=== PATIENT | female | born 1955 | race Caucasian/White ===

== ENCOUNTER 2022-04-23 10:25 | Inpatient (IN) | payer OTHER ==
[2022-04-23] MEDS ORDERED: SODIUM CHLORIDE 0.9% 500 ML 500 ML IV STA (10:56)
[2022-04-23] MEDS ORDERED: DILTIAZEM DRIP BOLUS FROM BAG 1 MG SOLN IV ONE (11:13)
[2022-04-23] MEDS ORDERED: HEPARIN SODIUM 1,000 UN/ML (10ML VL) IV ONE (11:13)
[2022-04-23] MEDS ORDERED: HEPARIN SOD,PORK IN 0.45% NACL 25,000 UNIT in 0.45% NACL 1 250ML.BAG IV SCH (11:15)
[2022-04-23 11:30] LABS: Basophils % (A) 1 %; Eosinophils # (A) 0.1 k/uL (0-0.7); Eosinophils % (A) 1 %; HCT 41.6 % (34.0-46.0); HGB 14.4 gm/dL (11.4-16.0); Lymphocytes # (A) 1.3 k/uL (1.0-4.8); Lymphocytes % (A) 29 %; MCH 34.6 pg (25.0-35.0); MCHC 34.7 g/dL (31.0-37.0); MCV 99.7 fL (80.0-100.0); Mean Platelet Volume 7.7; Monocytes # (A) 0.5 k/uL (0-1.0); Monocytes % (A) 11 %; Neutrophils # (A) 2.4 k/uL (1.3-7.7); Neutrophils % (A) 54 %; Platelet Count 229 k/uL (150-450); RBC 4.17 m/uL (3.80-5.40); RDW 13.7 % (11.5-15.5); WBC 4.4 k/uL (3.8-10.6)
[2022-04-23 11:31] LABS: ALT 25 U/L (4-34); AST 30 U/L (14-36); African American GFR (CKD) >90 (>60 ml/min/1.73 sqM); Albumin 4.7 g/dL (3.5-5.0); Alkaline Phosphatase 73 U/L (38-126); Anion Gap 9 mmol/L; Blood Urea Nitrogen 17 mg/dL (7-17); Calcium 9.3 mg/dL (8.4-10.2); Carbon Dioxide 27 mmol/L (22-30); Chloride 106 mmol/L (98-107); Glucose 108 mg/dL (74-99); Magnesium 1.6 mg/dL (1.6-2.3); Non-African American GFR(CKD) >90 (>60 ml/min/1.73 sqM); Potassium 4.3 mmol/L (3.5-5.1); Sodium 142 mmol/L (137-145); Total Bilirubin 1.4 mg/dL (0.2-1.3); Total Protein 7.5 g/dL (6.3-8.2)
[2022-04-23] MEDS: DILTIAZEM 125 MG in SODIUM CHLORIDE 0.9% 100 ML IV SCH ×2 (11:33→21:52)
[2022-04-23 11:34] LABS: INR 1.1 (<1.2); Partial Thromboplastin Time 25.7 sec (22.0-30.0); Prothrombin Time 11.3 sec (9.0-12.0)
--- NOTE | 2022-04-23 12:07 | XR ---
EXAMINATION TYPE: XR chest 2V DATE OF EXAM: 04/23/2022 12:01 PM COMPARISON: None TECHNIQUE: XR chest 2V Frontal and lateral views of the chest. CLINICAL INDICATION:Female, 66 years old with history of dysrhythmia; FINDINGS: Lungs/Pleura: There is no evidence of pleural effusion, focal consolidation, or pneumothorax. Pulmonary vascularity: Unremarkable. Heart/mediastinum: Cardiomediastinal silhouette is unremarkable. Musculoskeletal: No acute osseous pathology. IMPRESSION: No acute cardiopulmonary disease/process.
--- NOTE | 2022-04-23 13:36 | ED ---
General Adult HPI - General Chief complaint: Arrhythmia/Palpitations Stated complaint: Tachycardia Time Seen by Provider: 04/23/22 11:04 Source: patient, family, RN notes reviewed, old records reviewed Mode of arrival: ambulatory - History of Present Illness Initial comments: This is a 66-year-old female who has a history of high blood pressure. Patient drove in from [place] approximately 9 hours and woke up this morning feeling her heart racing. Patient states she put her apple watch on and the watch told her that her heart was about 140 beats minute. Patient states she has no previous history of atrial fibrillation or atrial flutter per patient denies any chest pain. Patient denies any recent fever chills or cough. Patient denies any lightheadedness or dizziness. Patient denies any headache patient denies numbness weakness. Patient denies abdominal pain patient has nausea vomiting or diarrhea. - Related Data Home Medications Medication Instructions Recorded Confirmed Aspirin EC [Ecotrin Low Dose] 81 mg PO DAILY 04/23/22 04/23/22 Rosuvastatin [Crestor] 0 mg 04/23/22 Allergies Allergy/AdvReac Type Severity Reaction Status Date / Time No Known Allergies Allergy Verified 04/23/22 13:48 Review of Systems ROS Statement: Those systems with pertinent positive or pertinent negative responses have been documented in the HPI. ROS Other: All systems not noted in ROS Statement are negative. Past Medical History Past Medical History: Hyperlipidemia, Hypertension History of Any Multi-Drug Resistant Organisms: None Reported Past Surgical History: No Surgical Hx Reported, Orthopedic Surgery Additional Past Surgical History / Comment(s): Lung wedge resection...bleb burst 1990. ankle Past Psychological History: No Psychological Hx Reported Smoking Status: Never smoker Past Alcohol Use History: Daily Past Drug Use History: None Reported General Exam - General Exam Comments Initial Comments: GENERAL: Patient is well-developed and well-nourished. Patient is nontoxic and well- hydrated and is in mild distress. ENT: Neck is soft and supple. No significant lymphadenopathy is noted. Oropharynx is clear. Moist mucous membranes. Neck has full range of motion without eliciting any pain. EYES: The sclera were anicteric and conjunctiva were pink and moist. Extraocular movements were intact and pupils were equal round and reactive to light. Eyelids were unremarkable. PULMONARY: Unlabored respirations. Good breath sounds bilaterally. No audible rales rhonchi or wheezing was noted. CARDIOVASCULAR: Patient's heart rate is regular at about 140 beats minute ABDOMEN: Soft and nontender with normal bowel sounds. No palpable organomegaly was noted. There is no palpable pulsatile mass. SKIN: Skin is clear with no lesions or rashes and otherwise unremarkable. NEUROLOGIC: Patient is alert and oriented x3. Cranial nerves II through XII are grossly intact. Motor and sensory are also intact. Normal speech, volume and content. Symmetrical smile. MUSCULOSKELETAL: Normal extremities with adequate strength and full range of motion. No lower extremity swelling or edema. No calf tenderness. LYMPHATICS: No significant lymphadenopathy is noted PSYCHIATRIC: Normal psychiatric evaluation. Course Vital Signs 04/23/22 04/23/22 04/23/22 10:45 11:13 12:00 Temperature 98.3 F Pulse Rate 143 H Pulse Rate [ 141 H Lead Injection Mold Technician ] Respiratory 18 16 Rate Blood Pressure 149/97 134/101 O2 Sat by Pulse 99 99 Oximetry 04/23/22 04/23/22 13:00 13:35 Temperature Pulse Rate 142 H 142 H Pulse Rate [ Lead Injection Mold Technician ] Respiratory 18 20 Rate Blood Pressure 142/108 141/73 O2 Sat by Pulse 99 99 Oximetry Medical Decision Making - Medical Decision Making EKG was interpreted by myself EKG showed atrial flutter at a rate of 142 bpm QRS is 178 QT interval 328 QTC is 410 Patient was placed on a Cardizem drip and heparin drip. I spoke with Dr. Martin agreed to admit the patient admitted the patient wrote admitting orders I consult cardiology. - Lab Data Result diagrams: 04/23/22 11:02 04/23/22 11:02 Lab Results 04/23/22 04/23/22 04/23/22 Range/Units 11:02 11:02 11:02 WBC 4.4 (3.8-10.6) k/uL RBC 4.17 (3.80-5.40) m/uL Hgb 14.4 (11.4-16.0) gm/dL Hct 41.6 (34.0-46.0) % MCV 99.7 (80.0-100.0) fL MCH 34.6 (25.0-35.0) pg MCHC 34.7 (31.0-37.0) g/dL RDW 13.7 (11.5-15.5) % Plt Count 229 (150-450) k/uL MPV 7.7 Neutrophils % 54 % Lymphocytes % 29 % Monocytes % 11 % Eosinophils % 1 % Basophils % 1 % Neutrophils # 2.4 (1.3-7.7) k/uL Lymphocytes # 1.3 (1.0-4.8) k/uL Monocytes # 0.5 (0-1.0) k/uL Eosinophils # 0.1 (0-0.7) k/uL Basophils # 0.0 (0-0.2) k/uL PT 11.3 (9.0-12.0) sec INR 1.1 (<1.2) APTT 25.7 (22.0-30.0) sec D-Dimer 0.33 (<0.60) mg/L FEU Sodium (137-145) mmol/L Potassium (3.5-5.1) mmol/L Chloride (98-107) mmol/L Carbon Dioxide (22-30) mmol/L Anion Gap mmol/L BUN (7-17) mg/dL Creatinine (0.52-1.04) mg/dL Est GFR (CKD-EPI)AfAm (>60 ml/min/1.73 sqM) Est GFR (CKD-EPI)NonAf (>60 ml/min/1.73 sqM) Glucose (74-99) mg/dL Calcium (8.4-10.2) mg/dL Magnesium (1.6-2.3) mg/dL Total Bilirubin (0.2-1.3) mg/dL AST (14-36) U/L ALT (4-34) U/L Alkaline Phosphatase (38-126) U/L Troponin I (0.000-0.034) ng/mL Total Protein (6.3-8.2) g/dL Albumin (3.5-5.0) g/dL TSH (0.465-4.680) mIU/L Urine Opiates Screen Not Detected (NotDetected) Ur Oxycodone Screen Not Detected (NotDetected) Urine Methadone Screen Not Detected (NotDetected) Ur Propoxyphene Screen Not Detected (NotDetected) Ur Barbiturates Screen Not Detected (NotDetected) U Tricyclic Antidepress Not Detected (NotDetected) Ur Phencyclidine Scrn Not Detected (NotDetected) Ur Amphetamines Screen Not Detected (NotDetected) U Methamphetamines Scrn Not Detected (NotDetected) U Benzodiazepines Scrn Not Detected (NotDetected) Urine Cocaine Screen Not Detected (NotDetected) U Marijuana (THC) Screen Not Detected (NotDetected) 04/23/22 04/23/22 Range/Units 11:02 11:02 WBC (3.8-10.6) k/uL RBC (3.80-5.40) m/uL Hgb (11.4-16.0) gm/dL Hct (34.0-46.0) % MCV (80.0-100.0) fL MCH (25.0-35.0) pg MCHC (31.0-37.0) g/dL RDW (11.5-15.5) % Plt Count (150-450) k/uL MPV Neutrophils % % Lymphocytes % % Monocytes % % Eosinophils % % Basophils % % Neutrophils # (1.3-7.7) k/uL Lymphocytes # (1.0-4.8) k/uL Monocytes # (0-1.0) k/uL Eosinophils # (0-0.7) k/uL Basophils # (0-0.2) k/uL PT (9.0-12.0) sec INR (<1.2) APTT (22.0-30.0) sec D-Dimer (<0.60) mg/L FEU Sodium 142 (137-145) mmol/L Potassium 4.3 (3.5-5.1) mmol/L Chloride 106 (98-107) mmol/L Carbon Dioxide 27 (22-30) mmol/L Anion Gap 9 mmol/L BUN 17 (7-17) mg/dL Creatinine 0.61 (0.52-1.04) mg/dL Est GFR (CKD-EPI)AfAm >90 (>60 ml/min/1.73 sqM) Est GFR (CKD-EPI)NonAf >90 (>60 ml/min/1.73 sqM) Glucose 108 H (74-99) mg/dL Calcium 9.3 (8.4-10.2) mg/dL Magnesium 1.6 (1.6-2.3) mg/dL Total Bilirubin 1.4 H (0.2-1.3) mg/dL AST 30 (14-36) U/L ALT 25 (4-34) U/L Alkaline Phosphatase 73 (38-126) U/L Troponin I <0.012 (0.000-0.034) ng/mL Total Protein 7.5 (6.3-8.2) g/dL Albumin 4.7 (3.5-5.0) g/dL TSH 2.650 (0.465-4.680) mIU/L Urine Opiates Screen (NotDetected) Ur Oxycodone Screen (NotDetected) Urine Methadone Screen (NotDetected) Ur Propoxyphene Screen (NotDetected) Ur Barbiturates Screen (NotDetected) U Tricyclic Antidepress (NotDetected) Ur Phencyclidine Scrn (NotDetected) Ur Amphetamines Screen (NotDetected) U Methamphetamines Scrn (NotDetected) U Benzodiazepines Scrn (NotDetected) Urine Cocaine Screen (NotDetected) U Marijuana (THC) Screen (NotDetected) Critical Care Time Critical Care Time: Yes Total Critical Care Time: 35 Disposition Clinical Impression: Atrial flutter with rapid ventricular response Disposition: ADMITTED IP TO [facility] Time of Disposition: 13:20
[2022-04-23] MEDS ORDERED: NITROGLYCERIN SL TABS 0.4 MG TAB SUBLINGUAL PRN (13:37)
[2022-04-23 13:54] LABS: Amphetamine Screen,Urine Not Detected (NotDetected); Barbiturate Screen,Urine Not Detected (NotDetected); Benzodiazepines Screen,Urine Not Detected (NotDetected); Cocaine Screen,Urine Not Detected (NotDetected); Methadone Screen, Urine Not Detected (NotDetected); Opiate Screen,Urine Not Detected (NotDetected); Oxycodone Screen, Urine Not Detected (NotDetected); Phencyclidine Screen,Urine Not Detected (NotDetected); Tricyclic Antidepressant,Urine Not Detected (NotDetected); Urn Cannabinoid Scrn Not Detected (NotDetected)
--- NOTE | 2022-04-23 15:24 | P.HPIM ---
History of Present Illness 66-year-old male came in consulted rapid wash showed her heart rate of 140s and a lower blood pressure. Patient denied any palpitations patient denied any chest pain at this time. Patient is found to be in atrial flutter never had any history of coronary artery disease doesn't smoke denied any lightheadedness or dizziness. REVIEW OF SYSTEMS: CONSTITUTIONAL: No fever, no malaise, no fatigue. HEENT: No recent visual problems or hearing problems. Denied any sore throat. CARDIOVASCULAR: No chest pain, orthopnea, PND, no syncope. PULMONARY: No shortness of breath, no cough, no hemoptysis. GASTROINTESTINAL: No diarrhea, no nausea, no vomiting, no abdominal pain. NEUROLOGICAL: No headaches, no weakness, no numbness. HEMATOLOGICAL: Denies any bleeding or petechiae. GENITOURINARY: Denies any burning micturition, frequency, or urgency. MUSCULOSKELETAL/RHEUMATOLOGICAL: Denies any joint pain, swelling, or any muscle pain. ENDOCRINE: Denies any polyuria or polydipsia. The rest of the 14-point review of systems is negative. PHYSICAL EXAMINATION: GENERAL: The patient is alert and oriented x3, not in any acute distress. Well developed, well nourished. HEENT: Pupils are round and equally reacting to light. EOMI. No scleral icterus. No conjunctival pallor. Normocephalic, atraumatic. No pharyngeal erythema. No thyromegaly. CARDIOVASCULAR: S1 and S2 present. No murmurs, rubs, or gallops. PULMONARY: Chest is clear to auscultation, no wheezing or crackles. ABDOMEN: Soft, nontender, nondistended, normoactive bowel sounds. No palpable organomegaly. MUSCULOSKELETAL: No joint swelling or deformity. EXTREMITIES: No cyanosis, clubbing, or pedal edema. NEUROLOGICAL: Gross neurological examination did not reveal any focal deficits. SKIN: No rashes. Assessment and plan -New-onset atrial flutter patient heart rate is not well controlled in spite of IV Cardizem and patient is also on IV heparin on although so far there is no evidence of atrial fibrillation echo will be obtained. Patient is not dehy drated there is no evidence of infection at this time -Hyperlipemia hypertension -Hypomagnesemia magnesium will be replaced DVT prophylaxis: On IV heparin Past Medical History Past Medical History: Hyperlipidemia, Hypertension History of Any Multi-Drug Resistant Organisms: None Reported Past Surgical History: No Surgical Hx Reported, Orthopedic Surgery Additional Past Surgical History / Comment(s): Lung wedge resection...bleb burst 1991. ankle Past Psychological History: No Psychological Hx Reported Smoking Status: Never smoker Past Alcohol Use History: Daily Past Drug Use History: None Reported Medications and Allergies Home Medications Medication Instructions Recorded Confirmed Type Aspirin EC [Ecotrin Low Dose] 81 mg PO DAILY 04/23/22 04/23/22 History Metoprolol Succinate [Toprol XL] 50 mg PO DAILY 04/23/22 04/23/22 History Rosuvastatin [Crestor] 20 mg PO DAILY 04/23/22 04/23/22 History Allergies Allergy/AdvReac Type Severity Reaction Status Date / Time No Known Allergies Allergy Verified 04/23/22 13:48 Physical Exam Vitals: Vital Signs Temp Pulse Pulse Resp BP Pulse Ox 04/23/22 14:28 142 H 18 149/98 98 04/23/22 13:35 142 H 20 141/73 99 04/23/22 13:00 142 H 18 142/108 99 04/23/22 12:00 16 134/101 99 04/23/22 11:13 141 H 04/23/22 10:45 98.3 F 143 H 18 149/97 99 Intake and Output 04/23/22 04/23/22 04/23/22 06:59 14:59 22:59 Other: Weight 79.379 kg Results CBC & Chem 7: 04/23/22 11:02 04/23/22 11:02 Labs: Abnormal Lab Results - Last 24 Hours (Table) 04/23/22 Range/Units 11:02 Glucose 108 H (74-99) mg/dL Total Bilirubin 1.4 H (0.2-1.3) mg/dL
[2022-04-23] MEDS: MAGNESIUM SULFATE-D5W PMX 1 GM in DEXTROSE/WATER 1 100ML.BAG IVPB SCH ×3 (18:20→21:27)
--- NOTE | 2022-04-23 18:42 | P.CRDCN ---
History of Present Illness Consult date: 04/23/22 History of present illness: History of Present Illness: The patient is a 66-year-old female with known history of hypertension and hyperlipidemia, visiting from [place] who presented to the emergency room with symptoms of palpitations and rapid heartbeat. She was noted to be in atrial flutter with 2 to one conduction. The patient is active physically without any symptoms in the past year that she denies any exertional chest discomfort, dizziness or palpitations prior to this event. She has no PND, orthopnea or peripheral edema. She has no prior cardiac history and according to her underwent a stress test within the last year that was unremarkable. She has a history of hypertension and hyperlipidemia, she is nondiabetic nonsmoker. She does not consume caffeinated beverages and drinks alcohol on a social basis. She's feeling better at the time of my evaluation. Her [id number] score is 3 Medications: Crestor 20 mg daily, Toprol-XL 50 mg daily, aspirin once a day Review of Systems: Respiratory: No history of asthma, bronchitis or recent cough. GI: No nausea or vomiting . No history of peptic ulcer disease. No recent GI bleed. : No hematuria or dysuria. Nervous System: No stroke or seizure. Physical Examination: 66-year-old female, alert and oriented no apparent distress ,Blood pressure when 132/90, Heart rate 144 Head: Normocephalic. Eyes: Sclerae nonicteric. Neck: Good carotid upstroke, no bruit, no jugular venous distention. Lungs: Clear to auscultation. Heart: Tachycardic, S1-S2, no S3, no rub. No murmur. Abdomen: Soft nontender, positive bowel sounds no organomegaly. Extremities: No edema, intact distal pulses. Labs: Troponin less than 0.012, potassium 4.3, BUN 17, creatinine 0.61. TSH 2.65. Hemoglobin 14.4. Chest x-ray with no acute infiltrate EKG: Atrial flutter with 2 to one conduction Impression: 1. Typical atrial flutter with 2 to one conduction 2. Hypertension 3. Hyperlipidemia Plan: 1. Continue beta janett 2. Changed to oral anticoagulation 3. Obtain an echocardiogram with Doppler 4. Continue IV Cardizem 5. If continues to be in atrial flutter consider RADHA guided cardioversion 6. The plan and recommendations were discussed with the patient and her family 7. Thank you for this consult we will follow with you Past Medical History Past Medical History: Hyperlipidemia, Hypertension History of Any Multi-Drug Resistant Organisms: None Reported Past Surgical History: Orthopedic Surgery Additional Past Surgical History / Comment(s): Lung wedge resection...bleb burst 1990. ankle x3 bunyon surgery Past Anesthesia/Blood Transfusion Reactions: No Reported Reaction Additional Past Anesthesia/Blood Transfusion Reaction / Comment(s): Never recieved blood products. No issues with anesthesia Smoking Status: Never smoker - Past Family History Father Family Medical History: Hyperlipidemia, Hypertension Additional Family Medical History / Comment(s): of heart attack at ge 53 Medications and Allergies Home Medications Medication Instructions Recorded Confirmed Type Aspirin EC [Ecotrin Low Dose] 81 mg PO DAILY 04/23/22 04/23/22 History Metoprolol Succinate [Toprol XL] 50 mg PO DAILY 04/23/22 04/23/22 History Rosuvastatin [Crestor] 20 mg PO DAILY 04/23/22 04/23/22 History Allergies Allergy/AdvReac Type Severity Reaction Status Date / Time No Known Allergies Allergy Verified 04/23/22 13:48 Physical Exam Vitals: Vital Signs Temp Pulse Pulse Resp BP BP Pulse Ox 04/23/22 18:02 98.1 F 144 H 16 132/95 98 04/23/22 17:05 144 H 18 122/93 98 04/23/22 16:00 144 H 16 136/97 99 04/23/22 15:30 98.7 F 144 H 18 136/97 97 04/23/22 15:00 144 H 18 149/98 99 04/23/22 14:28 142 H 18 149/98 98 04/23/22 14:00 18 141/93 99 04/23/22 13:35 142 H 20 141/73 99 04/23/22 13:00 142 H 18 142/108 99 04/23/22 12:00 16 134/101 99 04/23/22 11:13 141 H 04/23/22 10:45 98.3 F 143 H 18 149/97 99 Intake and Output 04/23/22 04/23/22 04/23/22 06:59 14:59 22:59 Intake Total 57.785 Balance 57.785 Intake: Intake, IV Titration 57.785 Amount Heparin Sod,Pork in 0.45% 57.785 NaCl 25,000 unit In 0.45 % NaCl 1 250ml.bag @ 12 UNITS/KG/HR 9.525 mls/hr IV .Q24H [facility] Rx#: [id number] Other: Weight 79.379 kg 79.379 kg Results 04/23/22 11:02 04/23/22 11:02 Cardiac Enzymes 04/23/22 04/23/22 04/23/22 Range/Units 11:02 11:02 14:00 AST 30 (14-36) U/L Troponin I <0.012 <0.012 (0.000-0.034) ng/mL 04/23/22 Range/Units 17:19 AST (14-36) U/L Troponin I <0.012 (0.000-0.034) ng/mL Coagulation 04/23/22 04/23/22 Range/Units 11:02 17:19 PT 11.3 (9.0-12.0) sec APTT 25.7 46.0 H (22.0-30.0) sec CBC 04/23/22 Range/Units 11:02 WBC 4.4 (3.8-10.6) k/uL RBC 4.17 (3.80-5.40) m/uL Hgb 14.4 (11.4-16.0) gm/dL Hct 41.6 (34.0-46.0) % Plt Count 229 (150-450) k/uL Comprehensive Metabolic Panel 04/23/22 Range/Units 11:02 Sodium 142 (137-145) mmol/L Potassium 4.3 (3.5-5.1) mmol/L Chloride 106 (98-107) mmol/L Carbon Dioxide 27 (22-30) mmol/L BUN 17 (7-17) mg/dL Creatinine 0.61 (0.52-1.04) mg/dL Glucose 108 H (74-99) mg/dL Calcium 9.3 (8.4-10.2) mg/dL AST 30 (14-36) U/L ALT 25 (4-34) U/L Alkaline Phosphatase 73 (38-126) U/L Total Protein 7.5 (6.3-8.2) g/dL Albumin 4.7 (3.5-5.0) g/dL Current Medications Generic Name Dose Route Start Last Admin Trade Name Freq PRN Reason Stop Dose Admin Aspirin 325 mg 04/24/22 09:00 Aspirin 325 Mg Tab PO DAILY [facility] Aspirin 81 mg 04/24/22 09:00 Aspirin 81 Mg PO DAILY [facility] Atorvastatin Calcium 40 mg 04/24/22 09:00 Atorvastatin 40 Mg Tab PO DAILY [facility] Diltiazem HCl 125 mg/ Sodium 125 mls @ 10 mls/hr 04/23/22 11:30 04/23/22 11:33 Chloride IV 10 mg/hr .[id number] [facility] 10 mls/hr Administration 10 MG/HR Heparin Sodium/Sodium Chloride 250 mls @ 9.525 mls/hr 04/23/22 11:15 04/23/22 18:09 25,000 unit/ Sodium Chloride IV 12 units/kg/hr .Q24H [facility] 9.525 mls/hr Titration Protocol 12 UNITS/KG/HR Metoprolol Tartrate 50 mg 04/23/22 21:00 Metoprolol Tartrate 50 Mg Tab PO BID [facility] Nitroglycerin 0.4 mg 04/23/22 13:37 Nitroglycerin Sl Tabs 0.4 Mg Tab SUBLINGUAL Q5M PRN Chest Pain Intake and Output 04/23/22 04/23/22 04/23/22 06:59 14:59 22:59 Intake Total 57.785 Balance 57.785 Intake: Intake, IV Titration 57.785 Amount Heparin Sod,Pork in 0.45% 57.785 NaCl 25,000 unit In 0.45 % NaCl 1 250ml.bag @ 12 UNITS/KG/HR 9.525 mls/hr IV .Q24H [facility] Rx#: [id number] Other: Weight 79.379 kg 79.379 kg Patient Weight 04/24/22 06:59 Weight 79.379 kg 04/23/22 11:02 04/23/22 11:02
[2022-04-23] MEDS: RIVAROXABAN 20 MG TAB PO SCH (18:49)
[2022-04-23] MEDS: METOPROLOL TARTRATE 25 MG TAB PO SCH (19:57)
[2022-04-23] MEDS ORDERED: METOPROLOL TARTRATE 50 MG TAB PO SCH (21:00)
[2022-04-24] MEDS ORDERED: ACETAMINOPHEN TAB 325 MG TAB PO PRN (04:42)
[2022-04-24 05:35] VITALS: RESP 16
[2022-04-24] MEDS: DILTIAZEM 125 MG in SODIUM CHLORIDE 0.9% 100 ML IV SCH ×2 (05:49→10:38)
[2022-04-24] MEDS: METOPROLOL TARTRATE 25 MG TAB PO SCH (07:54)
[2022-04-24 08:05] VITALS: BP 114/77; PULSE 68; TEMP 97.6
[2022-04-24] MEDS ORDERED: ATORVASTATIN 40 MG TAB PO SCH (09:00)
[2022-04-24] MEDS ORDERED: ASPIRIN 81 MG PO SCH (09:00)
[2022-04-24] MEDS ORDERED: ASPIRIN 325 MG TAB PO SCH (09:00)
[2022-04-24 10:47] LABS: African American GFR (CKD) >90 (>60 ml/min/1.73 sqM); Anion Gap 8 mmol/L; Blood Urea Nitrogen 13 mg/dL (7-17); Calcium 8.8 mg/dL (8.4-10.2); Carbon Dioxide 22 mmol/L (22-30); Chloride 108 mmol/L (98-107); Glucose 117 mg/dL (74-99); Non-African American GFR(CKD) >90 (>60 ml/min/1.73 sqM); Potassium 4.3 mmol/L (3.5-5.1); Sodium 138 mmol/L (137-145)
--- NOTE | 2022-04-24 10:48 | P.PN ---
Subjective Progress Note Date: 04/24/22 PROGRESS NOTE The patient is a 66-year-old female with no prior history of arrhythmia who presented with atrial flutter and rapid ventricle response, she is back in sinus mechanism. She's feeling well. Ambulating without difficulty. She denies any dizziness or palpitation. No nausea. She is off the IV Cardizem. Medications: Metoprolol 75 mg twice a day, Lipitor 40 mg daily,Xarelto 20 mg daily PHYSICAL EXAMINATION: Blood pressure 114/70 heart rate 60 LUNGS: Clear to auscultation HEART: Regular rate and rhythm, S1, S2. No S3. No systolic murmur ABDOMEN: Soft, nontender, no organomegaly EXTREMETIES: No edema LAB: Troponin less than 0.012 IMPRESSION: 1. Paroxysmal atrial flutter, back in sinus mechanism, score of 3 2. Hypertension 3. Hyperlipidemia PLAN: 1. Change back to metoprolol succinate 2. Continue anticoagulation 3. Discharged home today 4. Follow up with her heat set operator in [place], the patient is leaving to go back to [place] next week. She would require an echocardiogram and further cardiac evaluation, I discussed with her dose findings and recommendations. Objective - Vital Signs Vital signs: Vital Signs Temp 97.6 F 04/24/22 08:04 Pulse 68 04/24/22 08:04 Resp 16 04/24/22 08:04 BP 114/77 04/24/22 08:04 Pulse Ox 97 04/24/22 08:04 FiO2 21 04/23/22 21:27 Intake & Output 04/23/22 04/24/22 04/24/22 18:59 06:59 18:59 Intake Total 64.294 191.750 30.5 Balance 64.294 191.750 30.5 Weight 79.379 kg 94.9 kg Intake: Intake, IV Titration 64.294 191.750 30.5 Amount Diltiazem 125 mg In 191.750 30.5 Sodium Chloride 0.9% 100 ml @ 15 MG/HR 15 mls/hr IV .[id number] [facility] Rx#: [id number] Heparin Sod,Pork in 0.45% 64.294 NaCl 25,000 unit In 0.45 % NaCl 1 250ml.bag @ 12 UNITS/KG/HR 9.525 mls/hr IV .Q24H [facility] Rx#: [id number] Other: Voiding Method Toilet Toilet # Voids 1 2 - Labs CBC & Chem 7: 04/23/22 11:02 04/23/22 11:02 Labs: Abnormal Lab Results - Last 24 Hours (Table) 04/23/22 04/23/22 Range/Units 11:02 17:19 APTT 46.0 H (22.0-30.0) sec Glucose 108 H (74-99) mg/dL Total Bilirubin 1.4 H (0.2-1.3) mg/dL
[2022-04-24] MEDS: RIVAROXABAN 20 MG TAB PO SCH (12:49)
--- NOTE | 2022-04-24 13:54 | P.DS ---
Providers Date of admission: 04/23/22 13:37 Attending physician: Pat Martin Consults: 04/23/22 13:37 Consult Physician Urgent Consulting Provider: [facility] Consult Reason/Comments: Atrial flutter with rapid ventricular response Do you want consulting provider notified?: Yes Primary care physician: Stated None Hospital Course: Patient given with the atrial flutter patient is on IV Cardizem subsequently discontinued the patient's sustained release metoprolol dose was increased. Although there was no evidence of atrial fibrillation but there is a high concern for that. Echo was obtained and cardiology is recommending anti- correlation patient will be discharged on anticoagulation and increased dose of metoprolol. Plan - Discharge Summary Discharge Rx Participant: Yes New Discharge Prescriptions: New Metoprolol Succinate (ER) [Toprol XL] 50 mg PO DAILY #30 tab Rivaroxaban [Xarelto] 20 mg PO W/SUPPER #30 tab Continue Rosuvastatin [Crestor] 20 mg PO DAILY Discontinued Aspirin EC [Ecotrin Low Dose] 81 mg PO DAILY Metoprolol Succinate [Toprol XL] 50 mg PO DAILY Discharge Medication List Rosuvastatin [Crestor] 20 mg PO DAILY 04/23/22 [History] Metoprolol Succinate (ER) [Toprol XL] 50 mg PO DAILY #30 tab 04/24/22 [Rx] Rivaroxaban [Xarelto] 20 mg PO W/SUPPER #30 tab 04/24/22 [Rx] Follow up Appointment(s)/Referral(s): None,Stated [Primary Care Provider] - 3 Days (Please follow up with your Primary physician and 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
[2022-04-24 17:20] LABS: Chol/HDL Ratio 2.81 Ratio; LDL Cholesterol,Calculated 77.6 mg/dL (0.0-131.0)
[2022-04-25] MEDS ORDERED: METOPROLOL SUCCINATE (ER) 50 MG TAB.ER.24H PO SCH (09:00)
== END 2022-04-24 13:58 | disposition home or self-care (01) | DRG 310 ==
LOC: EC 10:25 → 3SCARD 13:37
PROVIDERS: ADMIT Internal Medicine; ATTEND Internal Medicine
DX: I48.3 Typical atrial flutter (principal); I10 Essential (primary) hypertension; E83.42 Hypomagnesemia; R00.0 Tachycardia, unspecified; E78.5 Hyperlipidemia, unspecified; Z79.82 Long term (current) use of aspirin; Z79.899 Other long term (current) drug therapy; Z82.49 Family history of ischemic heart disease and other diseases of the circulatory system
CPT/HCPCS: 36415; 71046; 80048; 80053; 80061; 80306; 83735; 84443; 84484; 85025; 85379; 85610; 85730; 93005; 94760; 96365; 96366; 96368; 99291